=== PATIENT | male | born 1980 | race Hispanic/Latino ===

== ENCOUNTER 2019-07-18 21:47 | Emergency (ER) | payer SELFPAY ==
[2019-07-18] MEDS ORDERED: Amoxicillin/Potassium Clav 875 MG TAB ONE (22:16)
[2019-07-18] MEDS ORDERED: traMADol HCl 50 MG TAB ONE (22:16)
== END 2019-07-18 22:21 | disposition home or self-care (01) ==
LOC: MADERS 21:47
DX: K04.7 Periapical abscess without sinus (principal); J32.0 Chronic maxillary sinusitis; K02.9 Dental caries, unspecified; K03.81 Cracked tooth
CPT/HCPCS: 99283